=== PATIENT | female | born 2000 | race Caucasian/White ===

== ENCOUNTER 2018-05-04 22:49 | Emergency (ER) | payer OTHER ==
[2018-05-05] MEDS: KETOROLAC TROMETHAMINE 10 MG TAB PO (00:25)
[2018-05-05] MEDS: NORCO 5/325MG TABLET (BULK FOR ED) PO (00:25)
[2018-05-05] MEDS: CLINDAMYCIN 150 MG CAP PO (00:25)
[2018-05-05] MEDS: ADACEL/BOOSTRIX VACCINE (DIPHTH/PERTUSS/ACELL/TETANUS)0.5ML SYR (90715) IM (00:26)
== END 2018-05-05 00:33 | disposition home or self-care (01) ==
LOC: M ED 22:49
DX: L03.116 Cellulitis of left lower limb (principal); S93.402A Sprain of unspecified ligament of left ankle, initial encounter; V86.65XA Passenger of 3- or 4- wheeled all-terrain vehicle (ATV) injured in nontraffic accident, initial encounter; Y92.89 Other specified places as the place of occurrence of the external cause; F17.200 Nicotine dependence, unspecified, uncomplicated; Z88.1 Allergy status to other antibiotic agents
CPT/HCPCS: 90715